=== PATIENT | male | born 2000 | race Two or more races ===

== ENCOUNTER 2025-01-09 11:37 | Emergency (ER) | payer BC ==
[~2025-01-09] VITALS: Ht 172.7 cm; Wt 54.4 kg
[2025-01-09] MEDS ORDERED: ONDANSETRON HCL/PF 4 MG/2 ML VIAL ONE (12:00)
[2025-01-09] MEDS ORDERED: MORPHINE SULFATE INJ 4 MG/ML DISP.SYRIN ONE (12:00)
[2025-01-09 12:10] LABS: BASOPHILS % (AUTO) 0.2 % (0.0-2.0); EOSINOPHILS # (AUTO) 0.3 K/uL (0.0-0.7); EOSINOPHILS % (AUTO) 1.6 % (0.0-6.0); HEMATOCRIT 37 % (39-51); HEMOGLOBIN 12.4 g/dL (13.5-17.5); LYMPHOCYTES # (AUTO) 1.6 K/uL (0.8-4.8); LYMPHOCYTES % (AUTO) 9.2 % (20.0-44.0); MEAN CORPUSCULAR HEMOGLOBIN 29 PG (26.0-33.0); MEAN CORPUSCULAR HGB CONC 34 g/dl (31.0-36.0); MEAN CORPUSCULAR VOLUME 87 fL (80-96); MONOCYTES # (AUTO) 0.9 K/uL (0.1-1.30); MONOCYTES % (AUTO) 4.9 % (2.0-12.0); NEUTROPHILS % (AUTO) 84.1 % (43.0-81.0); PLATELET COUNT (AUTO) 329 K/uL (150-450); RED BLOOD CELL COUNT(AUTO) 4.28 MIL/uL (4.5-6.0); RED CELL DISTRIBUTION WIDTH 13.5 % (11.5-15.0); WHITE BLOOD COUNT (AUTO) 17.9 K/uL (4.3-11.0)
[2025-01-09] MEDS: MORPHINE SULFATE INJ 2 MG/ML DISP.SYRIN IV ONE (12:14)
[2025-01-09] MEDS: ONDANSETRON HCL/PF 4 MG/2 ML VIAL IVP ONE (12:14)
[2025-01-09] MEDS: IV NS 0.9% 1,000 ML BAG IV ONE ×2 (12:14)
[2025-01-09] MEDS ORDERED: HALOPERIDOL LACTATE INJ 5 MG/ML VIAL ONE (12:29)
[2025-01-09] MEDS: HALOPERIDOL LACTATE INJ 5 MG/ML VIAL IM ONE (12:33)
[2025-01-09 12:37] LABS: CALCIUM, SERUM 9.1 mg/dL (8.5-10.1)
[2025-01-09 12:44] LABS: ALBUMIN 3.8 g/dL (3.4-5.0); BILIRUBIN,DIRECT 0.1 mg/dL (0.0-0.2); BILIRUBIN,TOTAL 0.3 mg/dL (0.2-1.0); TOTAL PROTEIN, SERUM 7.5 g/dL (6.4-8.2)
[2025-01-09] MEDS ORDERED: ONDA4TAB5 PO (13:19)
[2025-01-09 14:42] VITALS: BP 118/78; TEMP 98.2; O2SAT 97
== END 2025-01-09 14:43 | disposition home or self-care (01) ==
LOC: ER 11:45
DX: R11.2 Nausea with vomiting, unspecified (principal); F12.90 Cannabis use, unspecified, uncomplicated; R10.13 Epigastric pain; Z60.2 Problems related to living alone
CPT/HCPCS: 99285; 96374; 76705; 96361; 96375; 96372; 93005; 85025; 80048; 83690; 80076; 36415; J1630; J2270; J2405; J7030